=== PATIENT | female | born 1970 | race Caucasian/White ===

== ENCOUNTER 2017-03-21 10:35 | Emergency (ER) | payer BC ==
[~2017-03-21] VITALS: Wt 129.3 kg
[~2017-03-21 10:35] MED LIST: ETODOLAC400 M2 PO; LISINOPRIL20 MG PO; PERCOCET 325 MG1 TA2 PO; SYNTHROID,LEVO75 MCG PO
[2017-03-21 11:02] VITALS: BP 118/85
[2017-03-21] MEDS ORDERED: PREDNISONE10 MG PO (11:45)
[2017-03-21] MEDS ORDERED: CLARITIN10 MG PO (11:45)
[2017-03-21] MEDS ORDERED: FLONASE ALLERG9.9 ML NAS (11:45)
== END 2017-03-21 12:41 | disposition home or self-care (01) ==
LOC: ED 10:35
DX: B34.9 Viral infection, unspecified (principal); Z98.51 Tubal ligation status; Z79.899 Other long term (current) drug therapy

== ENCOUNTER 2018-02-20 16:25 | Emergency (ER) | payer BC ==
[~2018-02-20] VITALS: Ht 175.2 cm; Wt 131.5 kg
[~2018-02-20 16:25] MED LIST changes: +CLARITIN10 MG PO; +FLONASE ALLERG9.9 ML NAS; +PREDNISONE10 MG PO
[2018-02-20 16:27] VITALS: BP 158/80
[2018-02-20] MEDS ORDERED: Motrin,Rufen800 MG PO (17:46)
== END 2018-02-20 17:56 | disposition home or self-care (01) ==
LOC: ED 16:25
DX: S89.92XA Unspecified injury of left lower leg, initial encounter (principal); Z79.899 Other long term (current) drug therapy; X50.1XXA Overexertion from prolonged static or awkward postures, initial encounter; Y93.9 Activity, unspecified; Y92.89 Other specified places as the place of occurrence of the external cause; Y99.8 Other external cause status

== ENCOUNTER → 2018-04-14 | Outpatient (CLI) | payer BC ==
[~2018-04-14] MED LIST changes: +Motrin,Rufen800 MG PO
== END | disposition home or self-care (01) ==
LOC: MAMMO 16:58
DX: Z12.31 Encounter for screening mammogram for malignant neoplasm of breast (principal)

== ENCOUNTER → 2020-01-13 | Outpatient (CLI) | payer BC | END | disposition home or self-care (01) | LOC: COVID19 12:30 | PROVIDERS: ATTEND Internal Medicine | DX: U07.1 COVID-19 (principal) ==

== ENCOUNTER → 2021-11-15 | Outpatient (CLI) | payer OTHER ==
[2021-11-15 09:20] LABS: BUN 24 mg/dl (7-24); CHLORIDE 111 mmol/L (98-107); CHOLESTEROL 153 mg/dL (<200); CREATININE 1.04 mg/dL (0.55-1.02); POTASSIUM 4.5 mmol/L (3.5-5.1); SODIUM 140 mmol/L (136-145); TRIGLYCERIDES 136 mg/dl (<150)
[2021-11-15 09:21] LABS: LDL CHOLESTEROL 71 mg/dL (9-159)
== END | disposition home or self-care (01) ==
LOC: LAB 08:21
PROVIDERS: ATTEND Family Medicine
DX: I10 Essential (primary) hypertension (principal)

== ENCOUNTER → 2024-12-01 | Outpatient (CLI) | payer BC ==
[2024-12-01 14:02] LABS: BASO # 0.0 10*3/uL (0.0-0.1); BASO % 0.6 % (0.0-1.0); EOS # 0.2 10*3/uL (0.0-0.4); EOS % 2.5 % (1.0-4.0); MEAN CELL VOLUME 96.9 fl (81.0-99.0); MEAN CORPUSCULAR HGB 33.1 pg (27.0-31.0); MEAN PLATELET VOLUME 9.0 fl (9.6-12.3); MONO # 0.6 10*3/uL (0.1-1.0); MONO % 8.7 % (3.0-9.0); NEUT # 4.0 10*3/uL (2.3-7.9); NEUT % 62.1 % (47.0-73.0); NUCLEATED RED BLOOD CELL 0.0 % (0.0-0.0); NUCLEATED RED BLOOD CELL 0.0 10*3/uL (0.0-0.0); PLATELET COUNT AUTOMATED 239 10*3/uL (130-400); RED CELL DISTRI WIDTH 14.6 % (0-14.5)
[2024-12-01 14:32] LABS: BUN 13 mg/dl (9-23); LDL CHOLESTEROL 79 mg/dL (9-159); SGPT/ALT 21 U/L (5-49)
== END | disposition home or self-care (01) ==
LOC: LAB 13:15
PROVIDERS: ATTEND Family Medicine
DX: I10 Essential (primary) hypertension (principal); E55.9 Vitamin D deficiency, unspecified; R73.01 Impaired fasting glucose; N95.1 Menopausal and female climacteric states; Z68.42 Body mass index [BMI] 45.0-49.9, adult